=== PATIENT | male | born 1980 | race Caucasian/White ===

== ENCOUNTER 2019-11-21 19:35 | Emergency (ER) | payer BC, OTHER ==
[2019-11-21] MEDS ORDERED: Diphtheria,Pertussis(Acell),Tetanus Vaccine 0.5 ML Syringe IM ONE (19:53)
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
--- NOTE | 2019-11-21 20:22 | CT ---
Head CT Technique: Multiple axial sections through the brain were obtained. Intravenous contrast was not utilized. Comparison: No prior intracranial imaging is available. Findings: Ventricles along with basal cisterns and sulci over the convexities are within normal limits for the patient's age. No abnormal parenchymal densities are seen. No evidence of intracranial hemorrhage. No midline shift or mass-effect is seen. Bone window settings were reviewed. Visualized paranasal sinuses and mastoid sinuses show nothing acute. No acute calvarial finding is seen. Impression: 1. Nothing acute is identified on noncontrast head CT study. Diagnostic code #1 This report was dictated in MDT
== END 2019-11-21 20:39 | disposition home or self-care (01) ==
LOC: MW.ED 19:35
DX: S01.01XA Laceration without foreign body of scalp, initial encounter (principal); Z23 Encounter for immunization; W22.8XXA Striking against or struck by other objects, initial encounter
CPT/HCPCS: 12002; 70450; 70450-26; 90471; 90715; 99282; 99284

== ENCOUNTER 2025-03-18 08:15 | Emergency (ER) | payer BC ==
[2025-03-18] MEDS ORDERED: Sodium Chloride 0.9% 10 ML Syringe FLUSH PRN (08:51)
[2025-03-18] MEDS ORDERED: Sodium Chloride 0.9% 2.5 ML Syringe FLUSH PRN (08:51)
[2025-03-18 09:03] LABS: BASOPHILS ABSOLUTE AUTO 0.03 K/uL (0.00-0.20); BASOPHILS PERCENT AUTO 0.7 % (0.0-1.0); EOSINOPHILS ABSOLUTE AUTO 0.21 K/uL (0.00-0.45); EOSINOPHILS PERCENT AUTO 4.8 % (0.0-6.0); IMMATURE GRAN ABSOLUTE AUTO 0.05 K/uL (0.00-0.05); IMMATURE GRAN PERCENT AUTO 1.2 % (0.0-0.4); LYMPHOCYTES ABSOLUTE AUTO 1.66 K/uL (1.00-4.80); LYMPHOCYTES PERCENT AUTO 38.2 % (24.0-44.0); MEAN PLATELET VOLUME 10.5 fL (9.4-12.4); MONOCYTES ABSOLUTE AUTO 0.28 K/uL (0.00-0.80); MONOCYTES PERCENT AUTO 6.5 % (0.0-8.0); NEUTROPHILS ABSOLUTE AUTO 2.11 K/uL (1.80-7.70); NEUTROPHILS PERCENT AUTO 48.6 % (41.0-71.0); NRBC ABSOLUTE 0.00 K/uL (0.00-0.02); NRBC PERCENT 0.0 /100WBC (0.0-0.2); PLATELET COUNT,PLT 188 K/uL (150-400); RED BLOOD CELL COUNT 5.00 M/uL (4.52-5.90); WHITE BLOOD CELL COUNT,WBC 4.34 K/uL (3.9-11.3)
[2025-03-18] MEDS: Ondansetron 4 MG/2 ML SDV IVPUSH ONE (09:05)
[2025-03-18 09:13] LABS: APPEARANCE,URINE CLEAR; GLUCOSE,URINE NEGATIVE (NEGATIVE); OCCULT BLOOD,URINE NEGATIVE (NEGATIVE)
[2025-03-18 09:17] LABS: A/G RATIO 1.2 (0.9-1.6); ALANINE AMINOTRANSFERASE,ALT 61.0 IU/L (14-63); ASPARTATE AMNIOTRANSFERASE,AST 51.0 IU/L (15-37); BILIRUBIN TOTAL 0.3 mg/dL (0.2-1.0); BLOOD UREA NITROGEN,BUN 13.0 mg/dL (7.0-18.0); CARBON DIOXIDE,CO2 26.1 mmol/L (21.0-32.0); CHLORIDE,CL 105.0 mmol/L (98-107); CREATINE KINASE,CK 331.0 U/L (26-308); CREATININE 1.0 mg/dL (0.8-1.3); EST CRCL DRUG DOSING (CG) 103.47 mL/min; GLUCOSE RANDOM 122.0 mg/dL (74-106); POTASSIUM,K 3.9 mmol/L (3.5-5.1); PROTEIN TOTAL,TP 7.1 g/dL (6.4-8.2); SODIUM,NA 144.0 mmol/L (136-148)
[2025-03-18 09:26] LABS: ESTIMATED GFR 95.0 mL/min (>60)
[2025-03-18 09:27] LABS: D-DIMER QUANTITATIVE 0.36 mg/L FEU (0.00-0.50); INR 1.08 (0.86-1.11); PTT,PARTIAL THROMBOPLSTIN TIME 23.0 SEC (23.9-30.7)
[2025-03-18 09:33] LABS: AMPHETAMINES SCREEN, URINE NEGATIVE (CUTOFF=500); BUPRENORPHINE SCREEN,URINE NEGATIVE (CUTOFF=10); METHADONE SCREEN, URINE NEGATIVE (CUTOFF=200); METHAMPHETAMINES SCREEN, URINE NEGATIVE (CUTOFF=500); OXYCODONE SCREEN,URINE NEGATIVE (CUT0FF=100); PCP SCREEN,URINE NEGATIVE (CUTOFF=25); THC SCREEN,URINE 20 NG/ML NEGATIVE (CUTOFF=50)
[2025-03-18 09:38] LABS: EPITHELIAL CELLS,URINE RARE (NONE-FEW)
[2025-03-18] MEDS: Iopamidol 755 MG/ML 500 ML Multipack Bottle IVPUSH STA (11:18)
== END 2025-03-18 13:07 | disposition home or self-care (01) ==
LOC: MW.ED 08:15
DX: R55 Syncope and collapse (principal); I10 Essential (primary) hypertension; Z79.899 Other long term (current) drug therapy; Z88.8 Allergy status to other drugs, medicaments and biological substances; Y90.5 Blood alcohol level of 100-119 mg/100 ml
CPT/HCPCS: 36415; 70450; 70486; 71046; 71275; 72125; 80053; 80305; 80307; 81001; 82550; 83690; 83735; 84484; 85025; 85379; 85610; 85730; 93005; 96361; 96374; 99284; A9270; J2405; J7030; Q9967; 99283